=== PATIENT | male | born 1995 | race Caucasian/White ===

== ENCOUNTER 2017-12-25 10:34 | Day surgery (SDC) | payer BC, SELFPAY ==
[2017-12-25] MEDS ORDERED: ONDANSETRON 4 MG/2 ML VIAL ONE ×2 (10:49→11:52)
[2017-12-25] MEDS ORDERED: TETANUS & DIPHTHERIA TOX,ADULT 0.5 ML VIAL ONE (10:49)
[2017-12-25] MEDS ORDERED: CEFAZOLIN/SWI 1gm 1 GM/10 ML SYR ONE (10:49)
[2017-12-25] MEDS ORDERED: FENTANYL CITR 100 MCG/2 ML ONE ×3 (10:49→12:07)
--- NOTE | 2017-12-25 11:16 | RAD REPORT ---
EXAM DESCRIPTION: RAD - Hand Left 3 View - 12/25/2017 10:56 am CLINICAL HISTORY: Second digit amputation. COMPARISON: None. FINDINGS: Soft tissue amputation affecting the distal second digit. The very distal tuft of the seco nd digit is also amputated. No radiopaque foreign body.
--- NOTE | 2017-12-25 11:24 | ER ---
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 Transition of care: patient was not received from another setting of care. Onset of symptoms was December 25, 2017. Initial Sepsis Screen: Does the patient meet any 2 criteria? No. Patient's initial sepsis screen is negative. Does the patient have a suspected source of infection? No. Patient's initial sepsis screen is negative. Care prior to arrival: None. 10:37 Method Of Arrival: EMS: [facility] hb 10:37 Acuity: LAVELL 2 hb Historical: - Allergies: 10:40 No Known Allergies; hb - Home Meds: 10:40 None [Active]; hb - PMHx: 10:40 Bipolar disorder; Schizophrenia; hb - PSHx: 10:40 None; hb - Immunization history:: Adult Immunizations up to date. - Social history:: Smoking status: Patient/guardian denies using tobacco, Patient uses street drugs, marijuana. Screenin:45 Abuse screen: Denies threats or abuse. Denies injuries from another. hb 10:45 Nutritional screening: No deficits noted. Tuberculosis screening: No symptoms or risk hb factors identified. Fall Risk None identified. Assessment: 10:45 General: Appears in no apparent distress. uncomfortable, Behavior is cooperative, hb anxious, crying. Pain: Pain currently is 10 out of 10 on a pain scale. Neuro: Level of Consciousness is awake, alert, obeys commands, Oriented to person, place, time, situation. Cardiovascular: Heart tones S1 S2 present Capillary refill < 3 seconds Patient's skin is warm and dry. Respiratory: Airway is patent Trachea midline Respiratory effort is even, unlabored, Respiratory pattern is regular, symmetrical, Breath sounds are clear bilaterally. GI: No signs and/or symptoms were reported involving the gastrointestinal system. : No signs and/or symptoms were reported regarding the genitourinary system. EENT: No signs and/or symptoms were reported regarding the EENT system. Derm: Skin is intact, is healthy with good turgor. Musculoskeletal: Amputation of palmar aspect of distal phalanx of left index finger and left index fingernail. 10:47 Reassessment: Finger tip placed in moist gauze and ice per protocol. hb 11:30 Reassessment: Dr. Mohan at bedside. Surgical consent signed. hb 11:40 Reassessment: Patient appears in no apparent distress at this time. Patient and/or hb family updated on plan of care and expected duration. Pain level reassessed. Patient is alert, oriented x 3, equal unlabored respirations, skin warm/dry/pink. Vital Signs: 10:39 BP 132 / 91; Pulse 88; Resp 17; Temp 98.1; Pulse Ox 100% on R/A; Pain 10/10; hb 11:30 BP 128 / 88; Pulse 84; Resp 16; Pulse Ox 100% on R/A; Pain 8/10; hb ED Course: 10:36 Patient arrived in ED. jr8 10:36 Robert Huang PA is PHCP. jr8 10:36 Liborio Albert MD is Attending Physician. jr8 10:37 Ira Muhammad, [employer] is Primary Nurse. hb 10:39 Triage completed. hb 10:40 Arm band placed on right wrist. hb 10:45 Patient has correct armband on for positive identification. Placed in gown. Bed in low hb position. Call light in reach. Side rails up X 1. 10:45 Inserted saline lock: 20 gauge in right antecubital area, using aseptic technique. hb Blood collected. 10:55 XRAY Hand LEFT 3 View In Process Unspecified. EDMS 11:22 Fausto Mohan MD is Hospitalizing Provider. jr8 12:00 No provider procedures requiring assistance completed. hb 12:00 Patient admitted, IV remains in place. hb Administered Medications: 11:02 Drug: Tetanus-Diphtheria Toxoid Adult 0.5 ml {Clinical Documentation Manager: [employer]. Exp: hb 03/12/2020. Lot #: [id number]. } Route: IM; Site: left deltoid; 11:30 Follow up: Response: No adverse reaction hb 11:02 Drug: Ancef 1 grams Route: IVPB; Site: right antecubital; hb 11:33 Follow up: Response: No adverse reaction; IV Status: Completed infusion hb 11:02 Drug: fentaNYL (PF) 75 mcg Route: IVP; Site: right antecubital; hb 11:33 Follow up: Response: No adverse reaction hb 11:02 Drug: Zofran 4 mg Route: IVP; Site: right antecubital; hb 11:33 Follow up: Response: No adverse reaction hb Outcome: 11:23 Decision to Hospitalize by Provider. jr8 12:00 Admitted to OR accompanied by nurse, family with patient, via stretcher, with chart. hb 12:00 Condition: stable 12:00 Instructed on the need for admit, Demonstrated understanding of instructions. 12:01 Patient left the ED. hb Signatures: Dispatcher [employer] EDMS Robert Huang PA PA jr8 Ira Muhammad, RN RN hb
--- NOTE | 2017-12-25 11:24 | EDPHYS ---
Physician Documentation [facility] Name: Scout Monteiro II Age: 22 yrs Sex: Male : 1995 Arrival Date: 12/25/2017 Time: 10:36 Bed 8 Private MD: ED Physician Liborio Albert HPI: 12/25 11:08 This 22 yrs old Male presents to ER via EMS with complaints of Finger Injury. jr8 11:08 Onset: The symptoms/episode began/occurred acutely, today. The patient has not jr8 experienced similar symptoms in the past. The patient has not recently seen a physician. 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 Historical: - Allergies: 10:40 No Known Allergies; hb - Home Meds: 10:40 None [Active]; hb - PMHx: 10:40 Bipolar disorder; Schizophrenia; hb - PSHx: 10:40 None; hb - Immunization history:: Adult Immunizations up to date. - Social history:: Smoking status: Patient/guardian denies using tobacco, Patient uses street drugs, marijuana. ROS: 11:08 Eyes: Negative for injury, pain, redness, and discharge, ENT: Negative for injury, jr8 pain, and discharge, Neck: Negative for injury, pain, and swelling, Cardiovascular: Negative for chest pain, palpitations, and edema, Respiratory: Negative for shortness of breath, cough, wheezing, and pleuritic chest pain, Abdomen/GI: Negative for abdominal pain, nausea, vomiting, diarrhea, and constipation, Back: Negative for injury and pain, Skin: Negative for injury, rash, and discoloration, Neuro: Negative for headache, weakness, numbness, tingling, and seizure. 11:08 MS/extremity: Positive for laceration, pain, tenderness, of the left hand. Exam: 11:23 Cardiovascular: Regular rate and rhythm with a normal S1 and S2. No gallops, murmurs, jr8 or rubs. Normal PMI, no JVD. No pulse deficits. Respiratory: Lungs have equal breath sounds bilaterally, clear to auscultation and percussion. No rales, rhonchi or wheezes noted. No increased work of breathing, no retractions or nasal flaring. Skin: Warm, dry with normal turgor. Normal color with no rashes, no lesions, and no evidence of cellulitis. Neuro: Awake and alert, GCS 15, oriented to person, place, time, and situation. Cranial nerves II-XII grossly intact. Motor strength 5/5 in all extremities. Sensory grossly intact. Cerebellar exam normal. Normal gait. 11:23 Musculoskeletal/extremity: Extremities: grossly normal except: noted in the left hand: Patient has complete avulsion of skin to distal digit of left index finger just past nail bed. Part of the bone is missing and exposed. Patient without bleeding. The rest of digit is intact and with full ROM , ROM: intact in all extremities, Circulation is intact in all extremities. Sensation intact. Vital Signs: 10:39 BP 132 / 91; Pulse 88; Resp 17; Temp 98.1; Pulse Ox 100% on R/A; Pain 10/10; hb 11:30 BP 128 / 88; Pulse 84; Resp 16; Pulse Ox 100% on R/A; Pain 8/10; hb MDM: 10:36 Patient medically screened. jr8 11:21 Data reviewed: vital signs, nurses notes, lab test result(s), radiologic studies, plain jr8 films, and as a result, I will admit patient. Data interpreted: Pulse oximetry: on room air is 100 %. Interpretation: normal. Counseling: I had a detailed discussion with the patient and/or guardian regarding: the historical points, exam findings, and any diagnostic results supporting the discharge/admit diagnosis, lab results, radiology results, the need for further work-up and treatment in the hospital. ED course: Dr. Mohan was contacted and will take patient to surgery now . 12/25 10:38 Order name: CBC with Diff; Complete Time: 11:46 jr8 12/25 10:38 Order name: Basic Metabolic Panel; Complete Time: 11:46 jr8 12/25 10:40 Order name: XRAY Hand LEFT 3 View; Complete Time: 11:31 jr8 12/25 10:38 Order name: IV; Complete Time: 11:03 jr8 Administered Medications: 11:02 Drug: Tetanus-Diphtheria Toxoid Adult 0.5 ml {It Security Engineer: [employer]. Exp: hb 03/12/2020. Lot #: [id number]. } Route: IM; Site: left deltoid; 11:30 Follow up: Response: No adverse reaction hb 11:02 Drug: Ancef 1 grams Route: IVPB; Site: right antecubital; hb 11:33 Follow up: Response: No adverse reaction; IV Status: Completed infusion hb 11:02 Drug: fentaNYL (PF) 75 mcg Route: IVP; Site: right antecubital; hb 11:33 Follow up: Response: No adverse reaction hb 11:02 Drug: Zofran 4 mg Route: IVP; Site: right antecubital; hb 11:33 Follow up: Response: No adverse reaction hb Disposition: 16:23 Co-signature as Attending Physician, Liborio Albert MD. rn Disposition: 18 11:23 Hospitalization ordered by Fausto Mohan for Observation. Preliminary diagnosis is Amputation of digit . - Bed requested for Operating Room. - Status is Observation. hb - Condition is Stable. - Problem is new. - Symptoms are unchanged. UTI on Admission? No Signatures: Dispatcher [employer] EDMS Liborio Albert MD MD rn Roszak, Josh, PA PA jr8 Ira Muhammad RN RN hb Corrections: (The following items were deleted from the chart) 12:01 11:23 Hospitalization Ordered by Fausto Mohan MD for Observation. Preliminary hb diagnosis is Amputation of digit . Bed requested for Operating Room. Status is Observation. Condition is Stable. Problem is new. Symptoms are unchanged. UTI on Admission? No. jr8
[2017-12-25 11:31] LABS: Absolute Lymphocytes (CBC) 3.3 K/uL (0.7-4.9); Absolute Monocytes 0.7 K/uL (0.1-1.3); Absolute Neutrophil 4.6 K/uL (1.8-8.0); Basophils % 0.8 % (0-1.3); Lymphocytes % 37.5 % (15.3-44.8); MCV 87.8 fL (80-100); MPV 9.2 fL (7.6-11.3); Monocytes % 8.4 % (3.3-12.3)
[2017-12-25 11:36] LABS: Bicarbonate 26 mEq/L (21-31); Glucose Level 107 mg/dL (65-120); Potassium 3.8 mEq/L (3.6-5.0); Sodium Level 138 mEq/L (135-145)
[2017-12-25 11:37] LABS: BUN Blood Urea Nitrogen 12 mg/dL (6-20)
[2017-12-25] MEDS ORDERED: PROPOFOL 200 MG/20 ML VIAL IV ONE (11:38)
[2017-12-25] MEDS ORDERED: MIDAZOLAM HCL 2 MG/2 ML INJ ONE (11:39)
[2017-12-25] MEDS ORDERED: LIDOCAINE 2% MPF 5 ML VIAL ONE (11:52)
[2017-12-25] MEDS ORDERED: Ringers Lactate 1,000 ML IV ONE (11:55)
[2017-12-25] MEDS ORDERED: KETOROLAC 30 MG/ML INJ ONE (12:24)
[2017-12-25] MEDS ORDERED: MEPERIDINE HCL 25 MG/0.5 ML ONE (13:08)
[2017-12-25] MEDS ORDERED: CODEINE 30MG/APAP 300MG TAB ONE (13:52)
--- NOTE | 2017-12-26 00:03 | OP ---
Surgeon: Fausto Mohan MD Internal Auditor: Flako. Preoperative Diagnosis: Amputated tip of the left index finger. Postoperative Diagnosis: Amputated tip of the left index finger. Procedure Performed: Debridement of skin and subcutaneous tissue, bone, flap closure, nail bed repai r. Anesthesia: General. Procedure In Detail: After satisfactory induction of general anesthesia, left hand prepped with Beta dine scrub, Betadine paint, dry sterile drapes applied in usual manner. Arm was elevated, exsanguina lida with Esmarch, tourniquet was inflated to 250 mmHg. Hand placed on the [place] table. A perioste al elevator was used to remove the portion of the nail plate remaining. Then the patient's laceratio n was debrided to create a straight line across the nail bed. Then the bone was debrided with a bone cutter, and then filed with a file. Wound was jet lavaged, irrigated with 500 cc of dilute Betadine solution. A V-Y flap was outlined from the ulnar aspect of the index finger, advanced radially, and then sewn, closed with 4-0 Prolene simple sutures. Nail bed was repaired with 6-0 PDS. Tourniquet r eleased. The piece of silastic was used to replace the nail plate and dressed with Xeroform, 2-inch Rupa. The patient tolerated the procedure well and returned to recovery. NESS/MAKAYLA Voice ID: [id number] Report ID: [id number]
== END 2017-12-25 14:15 | disposition home or self-care (01) ==
LOC: ER 10:34 → OR 11:23
PROVIDERS: ATTEND Specialist
PROC: 0X6P0Z3 Detachment at Left Index Finger, Low, Open Approach (ICD-10-PCS; principal; 2017-12-25 11:15)
DX: S68.121A Partial traumatic metacarpophalangeal amputation of left index finger, initial encounter (principal)
CPT/HCPCS: 36415; 80048; 85025; 88304; 88305; 88311; 90714; 96365; 96375; 99285; J0690; J2175; J2250; J2405; J3010

== ENCOUNTER 2018-02-11 10:15 | Emergency (ER) | payer SELFPAY ==
[2018-02-11 11:02] LABS: Absolute Lymphocytes (CBC) 2.8 K/uL (0.7-4.9); Absolute Neutrophil 9.7 K/uL (1.8-8.0); Basophils % 0.5 % (0-1.3); Hematocrit 45.6 % (39.6-49.0); Lymphocytes % 20.7 % (15.3-44.8); MCH 29.1 pg (27.0-35.0); MCV 87.2 fL (80-100); MPV 8.6 fL (7.6-11.3); Monocytes % 7.1 % (3.3-12.3); RBC Red Blood Cell Count 5.23 M/uL (4.33-5.43)
[2018-02-11 11:17] LABS: BUN Blood Urea Nitrogen 6 mg/dL (7-18); Bicarbonate 29 mmol/L (21-32); Glucose Level 100 mg/dL (74-106); Sodium Level 140 mmol/L (136-145)
--- NOTE | 2018-02-11 12:15 | ER ---
Nurse's Notes [facility] Name: Scout Monteiro II Age: 22 yrs Sex: Male : 1995 Arrival Date: 02/11/2018 Time: 10:17 Bed 19 Private MD: Diagnosis: Pain in left finger(s) Presentation: 02/11 10:19 Presenting complaint: Patient states: "I believe I'm losing blood in my finger. It sv turns white and purple if I don't pump it." Redness noted and is new per pt. Transition of care: patient was not received from another setting of care. Onset of symptoms was February 11, 2018. Care prior to arrival: None. 10:19 Method Of Arrival: Ambulatory sv 10:19 Acuity: LAVELL 3 sv 12:48 Risk Assessment: Do you want to hurt yourself or someone else? Patient reports no aj1 desire to harm self or others. Initial Sepsis Screen: Does the patient meet any 2 criteria? No. Patient's initial sepsis screen is negative. Does the patient have a suspected source of infection? No. Patient's initial sepsis screen is negative. Historical: - Allergies: 10:21 No Known Allergies; sv - Home Meds: 10:21 None [Active]; sv - PMHx: 10:18 Bipolar disorder; Schizophrenia; sv - PSHx: 10:18 None; sv 10:21 left hand; sv - Immunization history:: Adult Immunizations up to date. - Social history:: Smoking status: Patient uses tobacco products, smokes one pack cigarettes per day. Patient uses alcohol, street drugs, Ecstasy. - Ebola Screening: : No symptoms or risks identified at this time. Screenin:45 Abuse screen: Denies threats or abuse. Denies injuries from another. Nutritional aj1 screening: No deficits noted. Tuberculosis screening: No symptoms or risk factors identified. 12:47 Fall Risk None identified. aj1 Assessment: 10:45 General: Appears in no apparent distress. uncomfortable, Behavior is calm, cooperative, aj1 appropriate for age, Patient states "I probably have a lot of alcohol in my system right now. I had quite a few drinks both last night and this morning". Pain: Complains of pain in dorsal aspect of distal phalanx of left index finger and palmar aspect of distal phalanx of left index finger Pain does not radiate. Pain currently is 8 out of 10 on a pain scale. Quality of pain is described as throbbing. Neuro: Level of Consciousness is awake, alert, obeys commands, Oriented to person, place, time, situation, Speech is normal. Cardiovascular: Patient's skin is warm and dry. Respiratory: Airway is patent Respiratory effort is even, unlabored, Respiratory pattern is regular, symmetrical. GI: No signs and/or symptoms were reported involving the gastrointestinal system. : No signs and/or symptoms were reported regarding the genitourinary system. EENT: No signs and/or symptoms were reported regarding the EENT system. Derm: redness and swelling present to the tip of the left index finger. Musculoskeletal: No signs and/or symptoms reported regarding the musculoskeletal system. Circulation, motion, and sensation intact. 11:28 Reassessment: Patient appears in no apparent distress at this time. No changes from aj1 previously documented assessment. Patient and/or family updated on plan of care and expected duration. Pain level reassessed. Patient is alert, oriented x 3, equal unlabored respirations, skin warm/dry/pink. 12:47 Reassessment: Patient appears in no apparent distress at this time. No changes from aj1 previously documented assessment. Patient and/or family updated on plan of care and expected duration. Pain level reassessed. Patient is alert, oriented x 3, equal unlabored respirations, skin warm/dry/pink. Vital Signs: 10:21 BP 121 / 83; Pulse 78; Resp 16; Temp 98.3; Pulse Ox 98% ; Weight 61.23 kg; Height 5 ft. sv 9 in. (175.26 cm); Pain 3/10; 12:47 BP 116 / 75; Pulse 82; Resp 18; Pulse Ox 99% ; aj1 10:21 Body Mass Index 19.93 (61.23 kg, 175.26 cm) sv ED Course: 10:17 Patient arrived in ED. sv 10:20 Triage completed. sv 10:21 Arm band placed on left wrist. sv 10:24 Paul Gandhi PA is PHCP. jmm 10:24 Liborio Albert MD is Attending Physician. jmm 10:29 Rama Agudelo RN is Primary Nurse. aj1 10:45 Patient has correct armband on for positive identification. Bed in low position. Call aj1 light in reach. Side rails up X 1. 10:45 No provider procedures requiring assistance completed. Initial lab(s) drawn, by nv, ajAjit sent to lab. Inserted saline lock: 18 gauge in right antecubital area, using aseptic technique. Blood collected. 11:14 X-ray completed. Portable x-ray completed in exam room. Patient tolerated procedure jw2 well. 11:18 Hand Left 3 View XRAY In Process Unspecified. EDMS 12:14 Fausto Mohan MD is Referral Physician. [facility] 12:47 IV discontinued, intact, bleeding controlled, No redness/swelling at site. Pressure aj1 dressing applied. Administered Medications: No medications were administered Outcome: 12:14 Discharge ordered by . [facility] 12:47 Discharged to home ambulatory. aj 12:47 Condition: good 12:47 Discharge instructions given to patient, Instructed on discharge instructions, follow up and referral plans. Demonstrated understanding of instructions, follow-up care. 12:48 Patient left the ED. aj Signatures: Dispatcher [employer] Rama Zavaleta RN RN aj1 Caitlyn Pollack RN RN Paul Gandhi PA PA Zaina Wilson jw2 Corrections: (The following items were deleted from the chart) 10:23 10:21 61.23 kg; Height 5 ft. 9 in.; BMI: 19.9; Pain 3/10; sv sv
--- NOTE | 2018-02-11 12:15 | EDPHYS ---
Physician Documentation [facility] Name: Scout Monteiro II Age: 22 yrs Sex: Male : 1995 Arrival Date: 02/11/2018 Time: 10:17 Bed 19 Private MD: ED Physician Liborio Albert HPI: 02/11 10:42 This 22 yrs old Male presents to ER via Ambulatory with complaints of Finger jmm infection. 10:42 The patient or guardian reports swelling. Onset: The symptoms/episode began/occurred jmm gradually, 3 week(s) ago. Associated signs and symptoms: Pertinent negatives: fever. This is a 22 year old male with a hx of schizophrenia that presents to the ED with left index distal finger swelling beginning approx 3 weeks ago after taking out his stitches. The patient denies fever. The patient is s/p distal finger amputation Dec 25 2017. Patient is concerned he may have cut off blood flow due to taking ectasy. . Historical: - Allergies: 10:21 No Known Allergies; sv - Home Meds: 10:21 None [Active]; sv - PMHx: 10:18 Bipolar disorder; Schizophrenia; sv - PSHx: 10:18 None; sv 10:21 left hand; sv - Immunization history:: Adult Immunizations up to date. - Social history:: Smoking status: Patient uses tobacco products, smokes one pack cigarettes per day. Patient uses alcohol, street drugs, Ecstasy. - Ebola Screening: : No symptoms or risks identified at this time. ROS: 10:42 Constitutional: Negative for fever, chills, and weight loss. jmm 10:42 MS/extremity: Positive for erythema. 10:42 Skin: Positive for erythema. 10:42 All other systems are negative. Exam: 10:42 Head/Face: atraumatic. Eyes: EOMI, no conjunctival erythema appreciated jmm Cardiovascular: Regular rate and rhythm. No edema appreciated Respiratory: Normal respirations, no respiratory distress appreciated Abdomen/GI: Non distended, soft Back: Normal ROM 10:42 Constitutional: The patient appears in no acute distress, alert, awake. 10:42 Musculoskeletal/extremity: FROM appreciated to the left 2nd distal phalanx, tender to palpation, < 2 sec distal cap refill. NVI. 10:42 Skin: erythema noted to the left 2nd fistal phalanx, . 10:42 Neuro: Orientation: is normal, Mentation: is normal, Memory: is normal, Gait: is steady. Vital Signs: 10:21 BP 121 / 83; Pulse 78; Resp 16; Temp 98.3; Pulse Ox 98% ; Weight 61.23 kg; Height 5 ft. sv 9 in. (175.26 cm); Pain 3/10; 12:47 BP 116 / 75; Pulse 82; Resp 18; Pulse Ox 99% ; aj1 10:21 Body Mass Index 19.93 (61.23 kg, 175.26 cm) sv MDM: 10:[address] [facility] 11:57 Data reviewed: vital signs, nurses notes, lab test result(s), radiologic studies, plain [facility] films. Counseling: I had a detailed discussion with the patient and/or guardian regarding: the historical points, exam findings, and any diagnostic results supporting the discharge/admit diagnosis, the need for outpatient follow up, to return to the emergency department if symptoms worsen or persist or if there are any questions or concerns that arise at home. ED course: Dr. Albert evaluated the patient. ED course: Patient is encouraged to follow up with hand surgery for reevaluation of his graft. Patient advised to return to the ED if he develops fever, or increased pain, or any other concerning symptoms. . 02/11 10:37 Order name: CBC with Diff; Complete Time: 11:24 [facility] 02/11 10:37 Order name: BMP; Complete Time: 11:24 [facility] 02/11 10:37 Order name: Saline Lock; Complete Time: 10:49 [facility] 02/11 10:37 Order name: Hand Left 3 View XRAY; Complete Time: 12:18 [facility] Administered Medications: No medications were administered Disposition: 17:12 Co-signature as Attending Physician, Liborio Albert MD. rn Disposition: 02/11/18 12:14 Discharged to Home. Impression: Pain in left finger(s). - Condition is Stable. - Discharge Instructions: Traumatic Finger Amputation. - Medication Reconciliation Form, Thank You Letter, Antibiotic Education, Prescription Opioid Use form. - Follow up: Fausto Mohan MD; When: 2 - 3 days; Reason: Continuance of care. - Notes: Please follow up with Dr. Mohan in 2 to 3 days for reevaluation. Please return to the ED if you develop increased redness, swelling, fever, or increased pain to your finger. Signatures: Dispatcher [employer] EDMS Rama Agudelo RN RN aj1 Caitlyn Pollack RN RN sv Mickail, Joel, PA PA jmm Nieto, Roman, MD MD pattern generator operator: (The following items were deleted from the chart) 12:48 12:14 02/11/2018 12:14 Discharged to Home. Impression: Pain in left finger(s). aj1 Condition is Stable. Forms are Medication Reconciliation Form, Thank You Letter, Antibiotic Education, Prescription Opioid Use. Follow up: Fausto Mohan; When: 2 - 3 days; Reason: Continuance of care. jovana
--- NOTE | 2018-02-11 12:16 | RAD REPORT ---
EXAM DESCRIPTION: RAD - Hand Left 3 View - 02/11/2018 11:18 am CLINICAL HISTORY: Traumatic injury left second digit, soft tissue wound, pain, bleeding COMPARISON: Left hand December 25 FINDINGS: Since the prior examination there has been surgical resection of the second digit distal p halanx tuft. Treatment or repair of the soft tissue injury performed as well. No acute or destructive bone process otherwise noted. No air or foreign body in the soft tissues. Elsewhere in the hand no s uspicious bone, joint or soft tissue finding. IMPRESSION: Postsurgical treatment of the tuft and soft tissues distal left second digit noted. No suspicious bone finding and no air or foreign body in the soft tissues.
== END 2018-02-11 12:48 | disposition home or self-care (01) ==
LOC: ER 10:15
DX: M79.645 Pain in left finger(s) (principal); F17.210 Nicotine dependence, cigarettes, uncomplicated; F20.9 Schizophrenia, unspecified
CPT/HCPCS: 36415; 80048; 85025; 99283

== ENCOUNTER 2019-10-26 10:48 | Emergency (ER) | payer SELFPAY ==
--- OUTSIDE RECORDS SUMMARY | 2019-10-26 10:50 | XMS REPORT ---
:1995 Author Organization [facility] Address [address] [place] [address] Dr. Ken [address] [place] [id number] Care Team Providers Name Role Phone Unavailable Unavailable Unavailable Problems This patient has no known problems. Allergies, Adverse Reactions, Alerts This patient has no known allergies or adverse reactions. Medications This patient has no known medications.
--- NOTE | 2019-10-26 12:32 | ER ---
Nurse's Notes [facility] Name: Scout Monteiro II Age: 24 yrs Sex: Male : 1995 Arrival Date: 10/26/2019 Time: 10:49 Bed 10 Private MD: Jagdeep Jiang Diagnosis: Acute upper respiratory infection, unspecified Presentation: 10/25 11:36 Chief complaint: Patient states: intermittent fever x 4 days with cough and runny nose. ss Coronavirus screen: The patient has NOT traveled to a country currently being monitored by the [facility] within the last 14 days. Proceed with normal triage procedures. Ebola Screen: Patient denies exposure to infectious person. Patient denies travel to an Ebola-affected area in the 21 days before illness onset. Initial Sepsis Screen: Does the patient meet any 2 criteria? No. Patient's initial sepsis screen is negative. Does the patient have a suspected source of infection? No. Patient's initial sepsis screen is negative. Risk Assessment: Do you want to hurt yourself or someone else? Patient reports no desire to harm self or others. 11:36 Method Of Arrival: Ambulatory ss 11:36 Acuity: LAVELL 4 ss 12:46 Onset of symptoms was October 26, 2019. ca1 Historical: - Allergies: 11:39 No Known Allergies; ss - Home Meds: 11:39 None [Active]; ss - PMHx: 11:39 Bipolar disorder; Schizophrenia; ss - PSHx: 11:39 left hand; ss - Immunization history:: Adult Immunizations up to date. - Social history:: Smoking status: Patient denies any tobacco usage or history of. Screenin:40 Abuse screen: Denies threats or abuse. Denies injuries from another. Nutritional ss screening: No deficits noted. Tuberculosis screening: Never had TB. Fall Risk None identified. Assessment: 11:40 General: Appears in no apparent distress. comfortable, Behavior is cooperative, ss anxious, Reports fever for > 3 days, feeling ill for > 3 days. Pain: Denies pain. Neuro: Level of Consciousness is awake, alert, obeys commands. Neuro: Denies weakness dizziness, numbness headache. Cardiovascular: Capillary refill < 3 seconds is brisk in bilateral fingers. Respiratory: Respiratory effort is even, unlabored. GI: Patient currently denies diarrhea, vomiting. EENT: Oral mucosa is moist. Throat is clear. Derm: Skin is intact, is healthy with good turgor, Skin is dry, Skin is pink, warm \T\ dry. normal. Musculoskeletal: Range of motion: intact in all extremities, Swelling absent. 12:46 Reassessment: Patient appears in no apparent distress at this time. Patient is alert, ca1 oriented x 3, equal unlabored respirations, skin warm/dry/pink. Vital Signs: 11:36 BP 132 / 94; Pulse 90; Resp 16; Temp 98.2(TE); Pulse Ox 100% on R/A; Weight 69.4 kg; ss Height 5 ft. 9 in. (175.26 cm); Pain 8/10; 12:46 BP 128 / 82; Pulse 92; Resp 16 S; Temp 97.9(TE); Pulse Ox 100% on R/A; ca1 11:36 Body Mass Index 22.59 (69.40 kg, 175.26 cm) ED Course: 10:49 Patient arrived in ED. rg4 10:50 Jadgeep Jiang MD is Private Physician. rg4 11:01 [facility]C [facility]. kb 11:01 Liborio Albert MD is Attending Physician. kb 11:39 Triage completed. ss 11:39 Arm band placed on right wrist. ss 11:40 Patient has correct armband on for positive identification. Bed in low position. Call ss light in reach. 12:46 No provider procedures requiring assistance completed. Patient did not have IV access ca1 during this emergency room visit. Administered Medications: No medications were administered Outcome: 12:31 Discharge ordered by . kb 12:33 Discharge ordered by . kb 12:46 Discharged to home ambulatory. ca1 12:46 Condition: stable 12:46 Discharge instructions given to patient, Instructed on discharge instructions, follow up and referral plans. Demonstrated understanding of instructions, follow-up care. 12:47 Patient left the ED. ca1 Signatures: Chloe Jeronimo FNP-C FNP-Ckb Smirch, Shelby, RN RN Karyn Miller rg4 Brigida Mitchell RN RN ca1
--- NOTE | 2019-10-26 12:32 | EDPHYS ---
Physician Documentation [facility] Name: Scout Monteiro II Age: 24 yrs Sex: Male : 1995 Arrival Date: 10/26/2019 Time: 10:49 Bed 10 Private MD: Jagdeep Jiang ED Physician Liborio Albert HPI: 10/25 12:28 This 24 yrs old Male presents to ER via Ambulatory with complaints of Cough, kb Runny Nose. 12:34 The patient or guardian reports cough, that is intermittent, described as moderate, flu kb symptoms, low-grade fever, myalgias. Onset: The symptoms/episode began/occurred 4 day(s) ago. Severity of symptoms: At their worst the symptoms were moderate, in the emergency department the symptoms are unchanged. Modifying factors: The symptoms are alleviated by nothing, the symptoms are aggravated by nothing. Associated signs and symptoms: Pertinent positives: fever, rhinorrhea. The patient has not experienced similar symptoms in the past. The patient has not recently seen a physician. Pt reports he started with intermittent fever and runny nose 4 days ago, now has a cough as well. "I have the symptoms of coronavirus." Pt denies travel or contact with anyone that has tested positive for COVID 19. Historical: - Allergies: 11:39 No Known Allergies; ss - Home Meds: 11:39 None [Active]; ss - PMHx: 11:39 Bipolar disorder; Schizophrenia; ss - PSHx: 11:39 left hand; ss - Immunization history:: Adult Immunizations up to date. - Social history:: Smoking status: Patient denies any tobacco usage or history of. ROS: 12:36 Neck: Negative for injury, pain, and swelling, Cardiovascular: Negative for chest pain, kb palpitations, and edema, Abdomen/GI: Negative for abdominal pain, nausea, vomiting, diarrhea, and constipation, Back: Negative for injury and pain, MS/Extremity: Negative for injury and deformity, Skin: Negative for injury, rash, and discoloration, Neuro: Negative for headache, weakness, numbness, tingling, and seizure. 12:36 Constitutional: Positive for body aches, fever. 12:36 ENT: Positive for rhinorrhea. 12:36 Respiratory: Positive for cough, Negative for dyspnea on exertion, hemoptysis, orthopnea, pleurisy, shortness of breath, sputum production, wheezing. Exam: 12:22 Constitutional: This is a well developed, well nourished patient who is awake, alert, kb and in no acute distress. Head/Face: Normocephalic, atraumatic. ENT: Nares patent. No nasal discharge, no septal abnormalities noted. Tympanic membranes are normal and external auditory canals are clear. Oropharynx with no redness, swelling, or masses, exudates, or evidence of obstruction, uvula midline. Mucous membranes moist. Neck: Trachea midline, no thyromegaly or masses palpated, and no cervical lymphadenopathy. Supple, full range of motion without nuchal rigidity, or vertebral point tenderness. No Meningismus. Chest/axilla: Normal chest wall appearance and motion. Nontender with no deformity. No lesions are appreciated. Cardiovascular: Regular rate and rhythm with a normal S1 and S2. No gallops, murmurs, or rubs. Normal PMI, no JVD. No pulse deficits. Respiratory: Lungs have equal breath sounds bilaterally, clear to auscultation and percussion. No rales, rhonchi or wheezes noted. No increased work of breathing, no retractions or nasal flaring. Abdomen/GI: Soft, non-tender, with normal bowel sounds. No distension or tympany. No guarding or rebound. No evidence of tenderness throughout. Skin: Warm, dry with normal turgor. Normal color with no rashes, no lesions, and no evidence of cellulitis. MS/ Extremity: Pulses equal, no cyanosis. Neurovascular intact. Full, normal range of motion. Neuro: Awake and alert, GCS 15, oriented to person, place, time, and situation. Cranial nerves II-XII grossly intact. Motor strength 5/5 in all extremities. Sensory grossly intact. Cerebellar exam normal. Normal gait. Vital Signs: 11:36 BP 132 / 94; Pulse 90; Resp 16; Temp 98.2(TE); Pulse Ox 100% on R/A; Weight 69.4 kg; ss Height 5 ft. 9 in. (175.26 cm); Pain 8/10; 12:46 BP 128 / 82; Pulse 92; Resp 16 S; Temp 97.9(TE); Pulse Ox 100% on R/A; ca1 11:36 Body Mass Index 22.59 (69.40 kg, 175.26 cm) MDM: 11:04 Patient medically screened. kb 12:12 Data reviewed: vital signs, nurses notes. Data interpreted: Pulse oximetry: on room air kb is 100 %. Interpretation: normal. Counseling: I had a detailed discussion with the patient and/or guardian regarding: the historical points, exam findings, and any diagnostic results supporting the discharge/admit diagnosis, lab results, the need for outpatient follow up, a family practitioner, to return to the emergency department if symptoms worsen or persist or if there are any questions or concerns that arise at home. 10/25 11:17 Order name: Flu; Complete Time: 12:09 kb Administered Medications: No medications were administered Disposition: 14:27 Co-signature as Attending Physician, Liborio Albert MD. rn Disposition: 10/26/19 12:33 Discharged to Home. Impression: Acute upper respiratory infection, unspecified. - Condition is Stable. - Discharge Instructions: Upper Respiratory Infection, Adult, [id number], Viral Respiratory Infection, [id number]. - Work release form, Medication Reconciliation Form, Thank You Letter, Antibiotic Education, Prescription Opioid Use form. - Follow up: Emergency Department; When: As needed; Reason: Worsening of condition. Follow up: Private Physician; When: 2 - 3 days; Reason: Recheck today's complaints, Continuance of care, Re-evaluation by your physician. Signatures: Dispatcher [employer] EDIL Chloe Jeronimo, WAFER SUBSTRATE TESTER-C WAFER SUBSTRATE TESTER-Ckb Liborio Albert MD MD rn Smirch, Shelby, RN RN ss Acob, Cheryl, RN RN [facility] Corrections: (The following items were deleted from the chart) 12:33 12:31 10/26/2019 12:31 Discharged to Home. Impression: Nausea and vomiting; Diarrhea, kb unspecified. Condition is Stable. Forms are Medication Reconciliation Form, Thank You Letter, Antibiotic Education, Prescription Opioid Use. Follow up: Emergency Department; When: As needed; Reason: Worsening of condition. Follow up: Private Physician; When: 2 - 3 days; Reason: Recheck today's complaints, Continuance of care, Re-evaluation by your physician. kb 12:34 12:22 Neck: Negative for injury, pain, and swelling, Cardiovascular: Negative for chest kb pain, palpitations, and edema, Respiratory: Negative for shortness of breath, cough, wheezing, and pleuritic chest pain, Back: Negative for injury and pain, MS/Extremity: Negative for injury and deformity, Skin: Negative for injury, rash, and discoloration, Neuro: Negative for headache, weakness, numbness, tingling, and seizure, 12:34 12:22 Constitutional: Positive for fever, kb 12:34 12:22 ENT: Positive for sore throat, kb 12:34 12:22 Abdomen/GI: Positive for nausea, vomiting, and diarrhea, kb 12:36 12:28 The patient has not experienced similar symptoms in the past, kb 12:36 12:28 The patient or guardian reports cough, that is intermittent, described as mild, kb flu symptoms, low-grade fever, :36 12:28 Onset: The symptoms/episode began/occurred yesterday, kb :36 12:28 Severity of symptoms: At their worst the symptoms were moderate, in the emergency kb department the symptoms are unchanged, :36 12:28 Modifying factors: The symptoms are alleviated by nothing, the symptoms are kb aggravated by nothing, : 12: Associated signs and symptoms: Pertinent positives: diarrhea, fever, nausea, sore kb throat, vomiting, :36 12:28 The patient has not recently seen a physician, [facility] : 12: Pt reports sore throat, fever, n/v/d that started yesterday. States 3 people that kb work with him have tested positive for the flu this week.. 12:47 12:33 10/26/2019 12:33 Discharged to Home. Impression: Acute upper respiratory ca1 infection, unspecified. Condition is Stable. Prescriptions for Zofran 4 mg Oral Tablet - take 1 tablet by ORAL route every 6 hours As needed; 20 tablet. and Forms are Medication Reconciliation Form, Thank You Letter, Antibiotic Education, Prescription Opioid Use. Follow up: Emergency Department; When: As needed; Reason: Worsening of condition. Follow up: Private Physician; When: 2 - 3 days; Reason: Recheck today's complaints, Continuance of care, Re-evaluation by your physician. kb
[2019-10-26 12:54] VITALS: O2SAT 100
[2019-10-26 12:55] VITALS: BP 128/82; TEMP 97.9
== END 2019-10-26 12:47 | disposition home or self-care (01) ==
LOC: ER 10:48
DX: J06.9 Acute upper respiratory infection, unspecified (principal)
CPT/HCPCS: 87804; 99281

== ENCOUNTER 2022-12-06 11:03 | Emergency (ER) | payer SELFPAY ==
--- OUTSIDE RECORDS SUMMARY | 2022-12-06 11:18 | XMS REPORT | Continuity of Care Document ---
:1995 Author Organization [facility] t Address [address] [place] [address] Care Team Providers Name Role Phone Pcp, Patient Does Not Have A Primary Care Physician [id number] ISIS DAHL Attending Clinician Unavailable Doctor Unassigned, [place] Attending Clinician Unavailable ALE GELLER Attending Clinician Unavailable SHIRLEY CHRISTIANSON Attending Clinician Unavailable Dhruv Malcolm Attending Clinician Shirley Christianson MD Attending Clinician NATHAN MANZO Attending Clinician Unavailable Isis Dahl MD Attending Clinician Odalis Lazaro Attending Clinician ISIS DAHL Admitting Clinician Unavailable YAYO [place]O Admitting Clinician Unavailable Isis Dahl MD Admitting Clinician Payers Payer Name Policy Type Policy Number Effective Date Expiration Date Boni foreman [facility] [id number] [id number] LONG TERM 00:00:00 Problems Condition Condition Condition Status Onset Resolution Last Treating Co mments Source Name Details Category Date Date Treatment Clinician Date Right Right Disease Active Overview: Univer s hydrocele hydrocele 04-10 Formattin i ty of 00:00: g of this [place] 00 note Medical might be Branch different from the original. Added automatic ally from request for surgery [id number] No known No known Disease Unive rs active active ity of problems problems [facility] Suicide Suicide Disease Active Street ideation ideation Health Psychosis Psychosis Disease Active [facility] Allergies, Adverse Reactions, Alerts Allergy Allergy Status Severity Reaction(s) Onset Inactive Treating Comm ents Source Name Type Date Date Clinician NO KNOWN Drug Active Univers ALLERGIE Class ity of S [facility] Social History Social Habit Start Date Stop Date Quantity Comments Source Exposure to Not sure [facility] SARS-CoV-2 (event) [facility] Gender identity Fernando gray Sexual orientation [facility] History of tobacco Smokes tobacco [facility] use daily History of Social 2022-09-06 2022-09-06 [facility] function 00:00:00 00:00:00 Alcohol intake 2021-03-13 2021-03-13 Ex-drinker [facility] 00:00:00 00:00:00 (finding) Cigarettes smoked 2015-05-19 2015-05-19 Univers ity of current (pack per 00:00:00 00:00:00 [facility] ) - Reported Branch Cigarette 2015-05-19 2015-05-19 University of pack-years 00:00:00 00:00:00 [facility] Tobacco use and 2015-05-19 2015-05-19 Current user Univers ity of exposure 00:00:00 00:00:00 [facility] Sex Assigned At [birth year] Fernando gray 00:00:00 00:00:00 Smoking Status Start Date Stop Date Source Current every day smoker 2015-05-19 00:00:[address] [facility] Medications Ordered Filled Start Stop Current Ordering Indication Dosage Frequency Signature Comments Components Source Medication Medication Date Date Medication? Clinician (SIG) Name Name nicotine 2020-08 Yes 1{patch 1 Patch, Un tae (NICODERM) 08-21 } Topical, ity o f 21 mg/24 hr 02:30: Administer [place] patch 1 00 over 24 Medical Patch Hours, [place] Q24H, First dose on Fri06/20/21 at 2030, Until Discontinu ed, Routine nicotine 2020-08- No 1{patch 1 Patch, U nivers (NICODERM) 08-20 } Topical, ity of 7 mg/24 hr 21:45: 01:18 Administer [place] patch 1 00 :02 over 24 Medical Patch Hours, Branch Q24H, First dose on Fri06/20/21 at 1545, Until Discontinu ed, Routine QUEtiapine 2020-0 Yes Psychosis, 25mg Take 1 [facility] (SEROQUEL) 4-23 unspecified tablet by Health 25 mg 00:00: psychosis mouth at tablet 00 type bedtime nightly. dextroamphe 2020-0 Yes 20mg Take 20 mg Univers tamine-amph 9-04 by mouth ity of etamine 17:44: daily. [place] (ADDERALL) 50 Medical 20 mg Branch tablet dextroamphe 2020-0 Yes 20mg Take 20 mg Univers tamine-amph 9-04 by mouth ity of etamine 17:44: daily. [place] (ADDERALL) 50 Medical 20 mg Branch tablet dextroamphe 2020-0 Yes 20mg Take 20 mg Univers tamine-amph 9-04 by mouth ity of etamine 17:44: daily. [place] (ADDERALL) 50 Medical 20 mg Branch tablet dextroamphe 2020-0 Yes 20mg Take 20 mg Univers tamine-amph 9-04 by mouth ity of etamine 17:44: daily. [place] (ADDERALL) 50 Medical 20 mg Branch tablet lactated 2020-0 Yes 1000mL at 100 Unive rs ringers IV 9-04 mL/hr, ity of infusion 16:45: 1,000 mL, [place] 1[place]000 [place] 00 IV Medical Infusion, Branch CONTINUOUS , Starting Fri04/14/20 at 1145, Until Discontinu ed, Routine, PACU HYDROcodone 2020-0 2020- No 1{tbl} 1 tablet, Univers -acetaminop 04-14 Oral, ity of hen (NORCO 16:45: 16:38 ONCE, 1 Dany as 5) 5-325 mg 00 :00 dose, Fri Med ical tablet 1 04/14/20 at Branch tablet 1145, Routine, PACU HYDROmorpho 2020-0 Yes .2mg 0.2 mg, Uni vers ne 04-14 Slow IV ity of (DILAUDID) 16:34: Push, [place] injection 43 Q5MIN PRN, Medi mariam 0.2 mg 10 doses, Branch Starting Fri04/14/20 at 1134, Until Discontinu ed, Routine, Pain (scale 7-10), PACU
Us e approved by (Faculty): PACU USE -ANESTHESI A SERVICE-HY DROMORPHON E INJECTIONS FENTanyl PF 2020-0 Yes 25ug 25 mcg, Uni vers (SUBLIMAZE 04-14 Slow IV ity of (PF)) 16:34: Push, [place] injection 43 Q5MIN PRN, Medi mariam 25 mcg 4 doses, Branch Starting Fri04/14/20 at 1134, Until Discontinu ed, Routine, Pain (scale 4-6), PACU ondansetron 2020-0 Yes 4mg 4 mg, Slow Univers (ZOFRAN 04-14 IV Push, ity of (PF)) 16:34: PRN, 1 [place] injection 4 43 dose, Medical mg Starting Branch Fri04/14/20 at 1134, Until Discontinu ed, Routine, Nausea and Vomiting (N/V), PACU bupivacaine 2020-0 Yes PRN, Univer s (preserv 04-14 Starting ity of free) 0.5% 15:29: Fri04/14/20 [place] (SENSORCAIN 00 at 1029, Medi mariam E MPF) 0.5 Until Branch % (5 mg/mL) Discontinu injection ed, Routine, Intra-op lidocaine 2020-0 Yes PRN, Univers 1% (PF) 04-14 Starting ity of (XYLOCAINE) 15:28: Fri04/14/20 [place] injection 00 at 1028, Medica l Until Branch Discontinu ed, Routine, Intra-op sodium 2020-0 Yes PRN, Univers chloride 04-14 Starting ity of 0.9 % 15:19: Fri04/14/20 [place] irrigation 00 at 1019, Medic al solution Until Branch Discontinu ed, Intra-op dextroamphe 2020-0 Yes 20mg Take 20 mg Univers tamine-amph -04 by mouth ity of etamine 12:44: daily. [place] (ADDERALL) 50 Medical 20 mg Branch tablet dextroamphe 2020-0 Yes 20mg Take 20 mg Univers tamine-amph 9-04 by mouth ity of etamine 12:44: daily. [place] (ADDERALL) 50 Medical 20 mg Branch tablet dextroamphe 2017-08 Yes 20mg Take 20 mg Univers tamine-amph 2-05 by mouth ity of etamine 03:22: daily. [place] (ADDERALL) 40 Medical 20 mg Branch tablet dextroamphe 2017- Yes 20mg Take 20 mg Univers tamine-amph 2-05 by mouth ity of etamine 03:22: daily. [place] (ADDERALL) 40 Medical 20 mg Branch tablet dextroamphe 2017- Yes 20mg Take 20 mg Univers tamine-amph 2-05 by mouth ity of etamine 03:22: daily. [place] (ADDERALL) 40 Medical 20 mg Branch tablet dextroamphe 2017- Yes 20mg Take 20 mg Univers tamine-amph 2-05 by mouth ity of etamine 03:22: daily. [place] (ADDERALL) 40 Medical 20 mg Branch tablet dextroamphe 2017- Yes 20mg Take 20 mg Univers tamine-amph 2-05 by mouth ity of etamine 03:22: daily. [place] (ADDERALL) 40 Medical 20 mg Branch tablet dextroamphe 2017- Yes 20mg Take 20 mg Univers tamine-amph 2-05 by mouth ity of etamine 03:22: daily. [place] (ADDERALL) 40 Medical 20 mg Branch tablet dextroamphe 2017-08 Yes 20mg Take 20 mg Univers tamine-amph 2-05 by mouth ity of etamine 03:22: daily. [place] (ADDERALL) 40 Medical 20 mg Branch tablet docusate 2018-0 Yes 250mg Take 1 Univer s sodium 250 8-03 capsule by ity of mg capsule 00:00: mouth [place] 00 daily. Medical Branch polyethylen 2018-0 Yes 17g Take 17 g U nivers e glycol 8-03 by mouth ity of (MIRALAX) 00:00: daily. [place] 17 00 Medical gram/dose Branch powder dicyclomine 2018-0 Yes 10mg Take 1 Univ ers (BENTYL) 10 8-03 capsule by it y of mg capsule 00:00: mouth 4 [place] 00 (four) Medical times Branch daily. ondansetron 2018-0 Yes 4mg Take 1 Univ ers 4 mg 8-03 tablet by ity of disintegrat 00:00: mouth [place] ing tablet 00 every 4 Medica l (four) Branch hours as needed for Nausea and Vomiting (N/V). docusate 2018-0 Yes 250mg Take 1 Univer s sodium 250 8-03 capsule by ity of mg capsule 00:00: mouth [place] 00 daily. Medical Branch polyethylen 2018-0 Yes 17g Take 17 g U nivers e glycol 8-03 by mouth ity of (MIRALAX) 00:00: daily. Medical gram/dose Branch powder dicyclomine 2018-0 Yes 10mg Take 1 Univ ers (BENTYL) 10 8-03 capsule by it y of mg capsule 00:00: mouth 4 [place] 00 (four) Medical times Branch daily. ondansetron 2018-0 Yes 4mg Take 1 Univ ers 4 mg 8-03 tablet by ity of disintegrat 00:00: mouth [place] ing tablet 00 every 4 Medica l (four) Branch hours as needed for Nausea and Vomiting (N/V). docusate 2018-0 Yes 250mg Take 1 Univer s sodium 250 8-03 capsule by ity of mg capsule 00:00: mouth [place] 00 daily. Medical Branch polyethylen 2018-0 Yes 17g Take 17 g U nivers e glycol 8-03 by mouth ity of (MIRALAX) 00:00: daily. Medical gram/dose Branch powder dicyclomine 2018-0 Yes 10mg Take 1 Univ ers (BENTYL) 10 8-03 capsule by it y of mg capsule 00:00: mouth 4 [place] 00 (four) Medical times Branch daily. ondansetron 2018-0 Yes 4mg Take 1 Univ ers 4 mg 8-03 tablet by ity of disintegrat 00:00: mouth [place] ing tablet 00 every 4 Medica l (four) Branch hours as needed for Nausea and Vomiting (N/V). docusate 2018-0 Yes 250mg Take 1 Univer s sodium 250 8-03 capsule by ity of mg capsule 00:00: mouth [place] 00 daily. Medical Branch polyethylen 2018-0 Yes 17g Take 17 g U nivers e glycol 8-03 by mouth ity of (MIRALAX) 00:00: daily. Medical gram/dose Branch powder dicyclomine 2018-0 Yes 10mg Take 1 Univ ers (BENTYL) 10 8-03 capsule by it y of mg capsule 00:00: mouth 4 [place] 00 (four) Medical times Branch daily. docusate 2018-0 Yes 250mg Take 1 Univer s sodium 250 8-03 capsule by ity of mg capsule 00:00: mouth [place] 00 daily. Medical Branch ondansetron 2018-0 Yes 4mg Take 1 Univ ers 4 mg 8-03 tablet by ity of disintegrat 00:00: mouth [place] ing tablet 00 every 4 Medica l (four) Branch hours as needed for Nausea and Vomiting (N/V). polyethylen 2018-0 Yes 17g Take 17 g U nivers e glycol 8-03 by mouth ity of (MIRALAX) 00:00: daily. Medical gram/dose Branch powder dicyclomine 2018-0 Yes 10mg Take 1 Univ ers (BENTYL) 10 8-03 capsule by it y of mg capsule 00:00: mouth 4 [place] 00 (four) Medical times Branch daily. ondansetron 2018-0 Yes 4mg Take 1 Univ ers 4 mg 8-03 tablet by ity of disintegrat 00:00: mouth [place] ing tablet 00 every 4 Medica l (four) Branch hours as needed for Nausea and Vomiting (N/V). docusate 2018-0 Yes 250mg Take 1 Univer s sodium 250 8-03 capsule by ity of mg capsule 00:00: mouth [place] 00 daily. Medical Branch polyethylen 2018-0 Yes 17g Take 17 g U nivers e glycol 8-03 by mouth ity of (MIRALAX) 00:00: daily. Medical gram/dose Branch powder dicyclomine 2018-0 Yes 10mg Take 1 Univ ers (BENTYL) 10 8-03 capsule by it y of mg capsule 00:00: mouth 4 [place] 00 (four) Medical times Branch daily. ondansetron 2018-0 Yes 4mg Take 1 Univ ers 4 mg 8-03 tablet by ity of disintegrat 00:00: mouth [place] ing tablet 00 every 4 Medica l (four) Branch hours as needed for Nausea and Vomiting (N/V). docusate 2018-0 Yes 250mg Take 1 Univer s sodium 250 8-03 capsule by ity of mg capsule 00:00: mouth [place] 00 daily. Medical Branch polyethylen 2018-0 Yes 17g Take 17 g U nivers e glycol 8-03 by mouth ity of (MIRALAX) 00:00: daily. Medical gram/dose Branch powder dicyclomine 2018-0 Yes 10mg Take 1 Univ ers (BENTYL) 10 8-03 capsule by it y of mg capsule 00:00: mouth 4 [place] 00 (four) Medical times Branch daily. ondansetron 2018-0 Yes 4mg Take 1 Univ ers 4 mg 8-03 tablet by ity of disintegrat 00:00: mouth [place] ing tablet 00 every 4 Medica l (four) Branch hours as needed for Nausea and Vomiting (N/V). docusate 2018-0 Yes 250mg Take 1 Univer s sodium 250 8-03 capsule by ity of mg capsule 00:00: mouth [place] 00 daily. Medical Branch polyethylen 2018-0 Yes 17g Take 17 g U nivers e glycol 8-03 by mouth ity of (MIRALAX) 00:00: daily. [place] 17 00 Medical gram/dose Branch powder dicyclomine 2018-0 Yes 10mg Take 1 Univ ers (BENTYL) 10 8-03 capsule by it y of mg capsule 00:00: mouth 4 [place] 00 (four) Medical times Branch daily. ondansetron 2018-0 Yes 4mg Take 1 Univ ers 4 mg 8-03 tablet by ity of disintegrat 00:00: mouth [place] ing tablet 00 every 4 Medica l (four) Branch hours as needed for Nausea and Vomiting (N/V). docusate 2018-0 Yes 250mg Take 1 Univer s sodium 250 8-03 capsule by ity of mg capsule 00:00: mouth [place] 00 daily. Medical Branch polyethylen 2018-0 Yes 17g Take 17 g U nivers e glycol 8-03 by mouth ity of (MIRALAX) 00:00: daily. [place] 17 Medical gram/dose Branch powder dicyclomine 2018-0 Yes 10mg Take 1 Univ ers (BENTYL) 10 8-03 capsule by it y of mg capsule 00:00: mouth 4 [place] 00 (four) Medical times Branch daily. ondansetron 2018-0 Yes 4mg Take 1 Univ ers 4 mg 8-03 tablet by ity of disintegrat 00:00: mouth [place] ing tablet 00 every 4 Medica l (four) Branch hours as needed for Nausea and Vomiting (N/V). docusate 2018-0 Yes 250mg Take 1 Univer s sodium 250 8-03 capsule by ity of mg capsule 00:00: mouth [place] 00 daily. Medical Branch polyethylen 2018-0 Yes 17g Take 17 g U nivers e glycol 8-03 by mouth ity of (MIRALAX) 00:00: daily. Medical gram/dose Branch powder dicyclomine 2018-0 Yes 10mg Take 1 Univ ers (BENTYL) 10 8-03 capsule by it y of mg capsule 00:00: mouth 4 [place] 00 (four) Medical times Branch daily. ondansetron 2018-0 Yes 4mg Take 1 Univ ers 4 mg 8-03 tablet by ity of disintegrat 00:00: mouth [place] ing tablet 00 every 4 Medica l (four) Branch hours as needed for Nausea and Vomiting (N/V). docusate 2018-0 Yes 250mg Take 1 Univer s sodium 250 8-03 capsule by ity of mg capsule 00:00: mouth [place] 00 daily. Medical Branch polyethylen 2018-0 Yes 17g Take 17 g U nivers e glycol 8-03 by mouth ity of (MIRALAX) 00:00: daily. Medical gram/dose Branch powder dicyclomine 2018-0 Yes 10mg Take 1 Univ ers (BENTYL) 10 8-03 capsule by it y of mg capsule 00:00: mouth 4 [place] 00 (four) Medical times Branch daily. ondansetron 2018-0 Yes 4mg Take 1 Univ ers 4 mg 8-03 tablet by ity of disintegrat 00:00: mouth [place] ing tablet 00 every 4 Medica l (four) Branch hours as needed for Nausea and Vomiting (N/V). docusate 2018-0 Yes 250mg Take 1 Univer s sodium 250 8-03 capsule by ity of mg capsule 00:00: mouth [place] 00 daily. Medical Branch polyethylen 2018-0 Yes 17g Take 17 g U nivers e glycol 8-03 by mouth ity of (MIRALAX) 00:00: daily. Medical gram/dose Branch powder dicyclomine 2018-0 Yes 10mg Take 1 Univ ers (BENTYL) 10 8-03 capsule by it y of mg capsule 00:00: mouth 4 [place] 00 (four) Medical times Branch daily. ondansetron 2018-0 Yes 4mg Take 1 Univ ers 4 mg 8-03 tablet by ity of disintegrat 00:00: mouth [place] ing tablet 00 every 4 Medica l (four) Branch hours as needed for Nausea and Vomiting (N/V). docusate 2018-0 Yes 250mg Take 1 Univer s sodium 250 8-03 capsule by ity of mg capsule 00:00: mouth [place] 00 daily. Medical Branch polyethylen 2018-0 Yes 17g Take 17 g U nivers e glycol 8-03 by mouth ity of (MIRALAX) 00:00: daily. [place] 17 00 Medical gram/dose Branch powder dicyclomine 2018-0 Yes 10mg Take 1 Univ ers (BENTYL) 10 8-03 capsule by it y of mg capsule 00:00: mouth 4 [place] 00 (four) Medical times Branch daily. ondansetron Yes 4mg Take 1 Univ ers 4 mg 8-03 tablet by ity of disintegrat 00:00: mouth [place] ing tablet 00 every 4 Medica l (four) Branch hours as needed for Nausea and Vomiting (N/V). Vital Signs Vital Name Observation Time Observation Value Comments Source Systolic blood 2021-06-21 04:41:00 118 mm[Hg] Univer sity [facility] Diastolic blood 2021-06-21 04:41:00 75 [facility] 2021-06-21 04:41:00 77 [facility] Body temperature 2021-06-21 04:41:00 36.78 [facility] Respiratory rate 2021-06-21 04:41:00 16 /min [facility] Oxygen saturation in 2021-06-21 04:41:00 98 /min [facility] Arterial blood by [facility] Pulse oximetry Branch Body height 2021-06-20 00:32:00 180.3 cm [facility] Body weight 2021-06-20 00:32:00 83.915 [facility] BMI 2021-06-20 00:32:00 25.80 kg/m2 [facility] Systolic blood 2020-04-20 13:38:00 102 mm[Hg] Univer sity [facility] Diastolic blood 2020-04-20 13:38:00 67 mm[Hg] [facility] 2020-04-20 13:38:00 60 /min Universi ty of [facility] Body temperature 2020-04-20 13:38:00 36.22 [place] [facility] ersity [facility] Respiratory rate 2020-04-20 13:38:00 20 /min Univ ersity of [facility] Body weight 2020-04-20 13:38:00 64.[address] [facility] BMI 2020-04-20 13:38:00 20.95 kg/m2 Universi ty [facility] Branch Systolic blood 2020-04-14 16:58:00 114 mm[Hg] Univer sity of pressure [facility] Diastolic blood 2020-04-14 16:58:00 75 mm[Hg] Unive rsity of pressure [facility] Heart rate 2020-04-14 16:58:00 80 /min Universi ty of [facility] Oxygen saturation in 2020-04-14 16:58:00 100 /min University Arterial blood by [facility] Pulse oximetry Branch Body temperature 2020-04-14 16:28:00 36.72 [place] [facility] [address] [facility] Respiratory rate 2020-04-14 16:28:00 15 /min Univ ersity of [facility] Body height 2020-04-12 13:58:00 175.[address] [facility] Body weight 2020-04-12 13:58:00 66.679 kg Universi ty of [place] [facility] [place] BMI 2020-04-12 13:58:00 21.71 kg/m2 Universi ty of [facility] Branch Systolic blood 2020-04-07 20:29:00 129 mm[Hg] Univer sity of pressure [facility] Diastolic blood 2020-04-07 20:29:00 90 mm[Hg] Unive rsity of pressure [facility] Heart rate 2020-04-07 20:29:00 104 /min Universi ty of [facility] Body temperature 2020-04-07 20:29:00 36.83 [place] [facility] [address] of [facility] Respiratory rate 2020-04-07 20:29:00 20 /min Univ ersity of [facility] Body height 2020-04-07 20:29:00 167.6 [address] [facility] Body weight 2020-04-07 20:29:[address] [facility] BMI 2020-04-07 20:29:00 22.76 [facility]m2 [facility] Oxygen saturation in 2020-04-07 20:29:00 98 /min [facility] blood by [facility] Pulse oximetry Branch Procedures Procedure Date / Time Performing Clinician Source Performed EXTERNAL PROVIDER RECORDS 2021-06-27 06:01:00 Doctor Unassigned, [facility] [place] [facility] [place] COVID-19 (MOLECULAR 2021-06-20 04:34:00 Dhruv Rae [facility] TESTING [facility] NUCLEIC ACID AMPLIFICATION) LAB ONLY COVID 2021-06-20 04:34:00 Dhruv Rae [facility] CREATINE KINASE 2021-06-20 00:55:00 Dhruv Rae [facility] LIPASE 2021-06-20 00:55:00 Dhruv Rae [facility] COMP. METABOLIC PANEL 2021-06-20 00:55:00 Dhruv Rae [facility] ([id number]) [facility] SALICYLATE 2021-06-20 00:55:00 Dhruv Rae [facility] ETHANOL 2021-06-20 00:55:00 Dhruv Rae [facility] CBC WITH DIFF 2021-06-20 00:55:00 Dhruv Rae [facility] COVID-19 (ID NOW RAPID 2021-06-20 00:55:00 Dhruv Rae [facility]) Medical Branch LAB ONLY COVID 2021-06-20 00:55:00 Dhruv Rae [facility] URINALYSIS 2021-06-20 00:50:00 Dhruv Rae [facility] URINE DRUG (IMMUNOASSAY) 2021-06-20 00:50:00 Dhruv Rae [facility] DRUG Medical [facility] SCREEN W/O REFLEX DSU PRE-OP 2020-04-14 05:01:00 Doctor Unassigned, [facility] [place] [facility] [place] US SCROTUM AND CONTENTS 2020-04-11 00:41:00 Odalis [facility] ASSIGNMENT OF BENEFITS 2020-04-10 23:19:18 [facility] Branch DISCLOSURE AND CONSENT, 2020-04-08 05:01:00 [facility]ICAL [place] [facility] PROCEDURES REFERRAL- 2020-03-08 05:01:00 Doctor Unassigned, [facility] REQUEST/RESPONSE [place] [facility] Plan of Care Planned Activity Planned Date Details Comments Source Future Scheduled Test 2023-05-11 IMM Influenza Seasonal [facility] 00:00:00 (>/= 19 yrs) [code = IMM Influenza Seasonal (>/= 19 yrs)] Future Scheduled Test 2000 Imm Pneumococcal 0-64 [facility] 00:00:00 (1 - PCV) [code = Imm Pneumococcal 0-64 (1 - PCV)] Future Scheduled Test 1994 COVID-19 Vaccine (#1) [facility] 00:00:00 [code = COVID-19 Vaccine (#1)] Encounters Start End Encounter Admission Attending Care Care Encounter Source Date/Time Date/Time Type Type Clinicians Facility Department ID 2021-06-08 Emergency [facility] [id number] Univers 15:07:11 [facility] 2021-06-08 Outpatient R FILOMENA [facility] GILDA [id number] Univers 14:55:36 ISIS [facility] 2021-06-27 2021-06-27 Orders Doctor GONZALEZ [id number] Univers 00:00:00 00:00:00 Only Unassigned, RAFAEL [id number] [facility] [place] [facility] [id number] Dany as [id number] [address] 2021-06-21 2021-06-25 Inpatient [facility] 023 [id number] [place] 00:00:00 00:00:00 ALE [address] 2021-06-19 2021-06-21 Emergency X MING [facility] ERT [id number] Univers 18:28:00 00:45:00 SHIRLEY [facility] 2021-06-19 2021-06-21 Emergency Dhruv Rae [facility] [id number] Univers 18:28:00 00:45:00 Shirley Christianson NORY [id number] [facility]y [facility] [id number] [facility] [id number] [facility] 084 Branch 2020-11-30 2020-12-01 Emergency [facility] [id number] [place] 14:37:00 10:30:00 Nabeel [place] aneesh EVANS 2020-05-03 2020-05-03 Telephone [facility] [id number] Univers 00:00:00 00:00:00 Isis Urban [id number] i [place] [id number] [place] Profess[place] [phone] [facility] 204 [facility] 2020-04-20 2020-04-20 Office [facility] [id number] Univers 08:31:56 09:11:13 Visit Isis Urban [id number] i [place] [id number] [phone] [address] 2020-04-20 2020-04-20 Outpatient R [facility] [id number] Univers 08:30:00 08:30:[address] [facility] 2020-04-14 2020-04-14 Hospital [facility] [id number] Univers 08:28:00 12:30:00 Encounter Isis Urban [id number] ity of [place] [id number] [place] [id number] Med [facility] 071 Branch 2020-04-14 2020-04-14 Orders Doctor LISA [id number] Univers 00:00:00 00:00:00 Only Unassigned, RAFAEL [id number] ity of [place] [facility] [id number] Dany as [phone] [facility] 009 Branch 2020-04-07 2020-04-12 Office [facility] [id number] Univers 15:20:02 09:02:35 Visit Isis Nory [id number] i ty [place] [id number] [place] [facility] [phone] Or dical nal 204 Branch [facility] 2020-04-10 2020-04-10 Hospital [facility] [id number] [employer] 18:00:00 23:59:00 Encounter Odalis Cline Nory 350.1.13.10 ity of [place] [id number] [facility] [address] 2020-04-08 2020-04-08 Orders Doctor LISA [id number] [id number] [employer] 00:00:00 00:00:00 Only Unassigned, RAFAEL 350.1.13.10 ity of [place] [facility] 4.2.7.2.686 Dany as [id number] [facility] [address] [place] 2020-04-07 2020-04-07 [facility] [id number] [facility] 15:30:00 15:30:00 [facility] 2020-03-08 2020-03-08 Orders Doctor LISA [id number] [id number] Univers 00:00:00 00:00:00 Only Unassigned, RAFAEL 350.1.13.10 ity of [place] [facility] 4.2.7.2.686 Dany as [phone] [facility] [address] [place] Results Test Description Test Time Test Comments Results Result Comments Source ACETAMINOPHEN 2021-06-20 01:15:56 Test Item Value Reference Range Interpretation Comme nts ACETAMINOP (test code = 4748673446) <10.0 10.0-30.0 L JANETT (test code = JANETT) Toxic: Greater than 200 ug/mL @ 4 hour post ingestion or greater than 50 ug/mL @ 12 hour post ingestion Lab Interpretation (test code = Abnormal 87049-6) [facility] 01:15[facility]15 Test Item Value Reference Range Interpretation Comments SALICYLATE (test code <10 mg/L = 8650495162) JANETT (test code = JANETT) Therapeutic Range: ? Analgesic and Antipyretic Use ? 20-100 mg/L ? ? Anti-Inflammatory Use ? 100-250 mg/L Toxic Range: ? Greater than 300 mg/L [facility] 01:15:10 Test Item Value Reference Range Interpretation Comments ALCOHOL (test code = <10 mg/dL 9737391155) JANETT (test code = JANETT) <10 [id number] Toxic>100 Depression of WAISTBAND SETTER>400 Fatalities Reported [facility] METABOLIC PANEL ([id number])2021-06-20 01:13:38 Test Item Value Reference Range Interpretation Comments NA (test code = 137 mmol/L 135-145 9462313675) K (test code = 3.9 mmol/L 3.5-5.0 3093621663) CL (test code = 103 mmol/L 98-108 1283593730) CO2 TOTAL (test code 25 mmol/L 23-31 = 8254882219) AGAP (test code = 2-16 1201909319) BUN (test code = 11 mg/dL 7-23 3995479833) GLUCOSE (test code = 108 mg/dL 70-110 8107993371) CREATININE (test code 1.05 mg/dL 0.60-1.25 = 2157658607) TOTAL BILI (test code 0.3 mg/dL 0.1-1.1 = 2344585540) CALCIUM (test code = 9.2 mg/dL 8.6-10.6 0595004630) T PROTEIN (test code 7.0 g/dL 6.3-8.2 = 6121753505) ALBUMIN (test code = 4.3 g/dL 3.5-5.0 4012919278) ALK PHOS (test code = 68 U/L 34-122 6873918507) ALTv (test code = 15 U/L 5-50 1742-6) AST(SGOT) (test code 20 U/L 13-40 = 5877426115) eGFR (test code = mL/min/1.73m2 6421051196) JANETT (test code = JANETT) Association of Glomerular Filtration Rate (GFR) and Staging of Kidney Disease* + + +- +| GFR (mL/min/1.73 m2) ?| With Kidney Damage ?| ?Without Kidney Damage+ ------+ ----+ ------+| ?>90 ?| ?Stage one ?| ? Normal ?+ -+ + -+| ?60-89 ?| ?Stage two ?| ? Decreased GFR ? + + +- +| ?30-59 ?| ?Stage three ?| ? Stage three ? + + +- +| ?15-29 ?| ?Stage four ? | ? Stage four ?+ -+ + -+| ?<15 (or dialysis) ? ?| ?Stage five ? | ? Stage five ?+ -+ + -+ *Each stage assumes the associated GFR level has been in effect for at least three months. ?Stages 1 to 5, with or without kidney disease, indicate chronic kidney disease. Notes: Determination of stages one and two (with eGFR >59mL/min/1.73 m2) requires estimation of kidney damage for at least three months as defined by structural or functional abnormalities of the kidney, manifested by either:Pathological abnormalities or Markers of kidney damage (including abnormalities in the composition of the blood or urine or abnormalities in imaging tests). [facility]2021-11-10 01:13:37 Test Item Value Reference Range Interpretation Comments LIPASE (test code = 1057582262) 64 U/L 0-220 Lab Interpretation (test code = Normal 98384-4) [facility] [id number] 01:13:16 Test Item Value Reference Range Interpretation Comments CK (test code = 6332550074) 76 U/L 33-194 Lab Interpretation (test code = Normal 26750-6) [facility] WITH [id number] 01:01:56 Test Item Value Reference Range Interpretation Comments WBC (test code = See_Comment [Automated 9800-2) message] The sy stem which generated this result transmitted reference range : 4.20 - 10.70 10*3/?L. The reference range was not used to interpret this result as normal/abnormal . RBC (test code = See_Comment [Automated 265-8) message] The sy stem which generated this result transmitted reference range : 4.26 - 5.52 10*6/?L. The reference range was not used to interpret this result as normal/abnormal . HGB (test code = 13.7 g/dL 12.2-16.4 718-7) HCT (test code = 41.2 % 38.4-49.3 4544-3) MCV (test code = 88.2 fL 81.7-95.6 787-2) MCH (test code = 29.3 pg 26.1-32.7 785-6) MCHC (test code = 33.3 g/dL 31.2-35.0 786-4) RDW-SD (test code = 39.8 fL 38.5-51.6 55473-9) RDW-CV (test code = 12.3 % 12.1-15.4 788-0) PLT (test code = See_Comment [Automated 777-3) message] The sy stem which generated this result transmitted reference range : 150 - 328 10*3/ ?L. The reference r gary was not used to interpret this result as normal/abnormal . MPV (test code = 10.5 fL 9.8-13.0 98732-0) NRBC/100 WBC (test See_Comment [Automat ed code = 8080058513) message] The system which generated this result transmitted reference range : 0.0 - 10.0 /100 WBCs. The refer ence range was not u sed to interpret th is result as normal/abnormal . NRBC x10^3 (test code <0.01 See_Comment [Auto mated = 6911533620) message] The s ystem which generated this result transmitted reference range : 10*3/?L. The reference range was not used to interpret this result as normal/abnormal . GRAN MAT (NEUT) % 55.6 % (test code = 770-8) IMM GRAN % (test code 0.30 % = 3156643607) LYMPH % (test code = 34.9 % 736-9) MONO % (test code = 8.0 % 5905-5) EOS % (test code = 0.7 % 713-8) BASO % (test code = 0.5 % 706-2) GRAN MAT x10^3(ANC) 5.24 10*3/uL 1.99-6.95 (test code = 3448327215) IMM GRAN x10^3 (test 0.03 10*3/uL 0.00-0.06 code = 7699329300) LYMPH x10^3 (test code 3.30 10*3/uL 1.09-3.23 H = 731-0) MONO x10^3 (test code 0.76 10*3/uL 0.36-1.02 = 742-7) EOS x10^3 (test code = 0.07 10*3/uL 0.06-0.53 711-2) BASO x10^3 (test code 0.05 10*3/uL 0.01-0.09 = 704-7) Lab Interpretation Abnormal (test code = 20007-2) [facility]"
[2022-12-06] MEDS ORDERED: TDAP (DIPHTH,PERTUSS(ACELL),TET VAC) 0.5 ML VIAL IMVAC ONE (11:34)
--- NOTE | 2022-12-06 12:15 | RAD REPORT ---
EXAM DESCRIPTION: MEDINA WYMAN - 12/06/2022 11:43 am CLINICAL HISTORY: PAIN COMPARISON: Hand Left 3 View dated 02/11/2018; Hand Left 3 View dated 12/25/2017 TECHNIQUE: Left hand, 3 views. FINDINGS: Soft tissue irregularity and amputation at the level of the tuft of the second digit dista l phalanx, stable in appearance. No other acute osseous abnormality. . Mild adjacent swelling extendi ng along the second digit. Punctate radiodense foci along the soft tissues of the second digit and ba se of the third digit, suggestive of There is no dislocation or periosteal reaction noted. Joint alignment is maintained. IMPRESSION: Stable appearance of amputation at the level of the tuft of the second digit distal phal anx. Soft tissue swelling about the second digit.
[2022-12-06] MEDS ORDERED: BUPIVACAINE 0.5% PF 10 ML VIAL ONE (12:41)
[2022-12-06] MEDS ORDERED: LIDOCAINE 1% MPF 5 ML VIAL ONE (12:41)
--- NOTE | 2022-12-06 13:56 | EDPHYS ---
Physician Documentation [facility] Name: Scout Monteiro II Age: 27 yrs Sex: Male : 1995 Arrival Date: 12/06/2022 Time: 11:03 Bed 11 Private MD: ED Physician Sumanth Crain HPI: 12/06 15:17 This 27 yrs old Male presents to ER via Ambulatory with complaints of Finger Injury. kb 15:17 The patient or guardian reports injury, pain, nail removed. The complaints affect the kb dorsal aspect of distal phalanx of left index finger. Context: The problem was sustained at work, resulted from accidentally scraped finger with [place] bar causing nail to be removed . Onset: The symptoms/episode began/occurred just prior to arrival. Modifying factors: The symptoms are alleviated by nothing, the symptoms are aggravated by nothing. Associated signs and symptoms: The patient has no apparent associated signs or symptoms. Severity of symptoms: At their worst the symptoms were mild, in the emergency department the symptoms are unchanged. The patient has not experienced similar symptoms in the past. The patient has not recently seen a physician. Historical: - Home Meds: 11:20 Seroquel 25 mg Oral tablet daily [Active]; ld1 - PMHx: 11:20 Bipolar disorder; Schizophrenia; ld1 - PSHx: 11:20 None; ld1 - Immunization history:: Adult Immunizations up to date, Client reports receiving the 2nd dose of the Covid vaccine. - Social history:: Smoking status: Patient denies any tobacco usage or history of. Patient/guardian denies using alcohol. ROS: 15:19 Constitutional: Negative for fever, chills, and weight loss. kb 15:19 Skin: Positive for avulsion, of the dorsal aspect of distal phalanx of left index finger. 15:19 All other systems are negative. Exam: 15:19 Constitutional: This is a well developed, well nourished patient who is awake, alert, kb and in no acute distress. Head/Face: Normocephalic, atraumatic. ENT: Moist Mucous membranes Cardiovascular: Regular rate and rhythm with a normal S1 and S2. No gallops, murmurs, or rubs. No pulse deficits. Respiratory: Respirations even and unlabored. No increased work of breathing. Talking in full sentences MS/ Extremity: Pulses equal, no cyanosis. Neurovascular intact. Full, normal range of motion. Neuro: Awake and alert, GCS 15, oriented to person, place, time, and situation. Moves all extremities. Normal gait. 15:19 Skin: injury, avulsion(s), of the dorsal aspect of distal phalanx of left index finger. 15:19 Musculoskeletal/extremity: Nails: complete avulsion, of the left index fingernail. kb Vital Signs: 11:19 Resp 18; Pulse Ox 100% ; Weight 90.72 kg; Height 5 ft. 11 in. ; Pain 10/10; ld1 11:22 BP 130 / 97; Pulse 81; Temp 98.3(O); ld1 14:15 BP 128 / 89; Pulse 88; Resp 18; Pulse Ox 100% ; mb9 11:19 Body Mass Index 27.89 (90.72 kg, 180.34 cm) ld1 11:19 Pain Scale: Adult ld1 Procedures: 13:06 Nerve block: (digital) of palmar aspect of proximal phalanx of left index finger kb Medication: Lidocaine 1% without epinephrine Marcaine 0.5%, Amount: 5 mls were injected, Effect: the patient has resolution of the pain, Set up for procedure. Performed by Chloe REAGAN Patient tolerated well. MDM: 11:08 Patient medically screened. kb 13:55 Data reviewed: vital signs, nurses notes. kb 12/06 11:21 Order name: Hand Left 3 View XRAY; Complete Time: 12:18 kb 12/06 13:54 Order name: Wound Care; Complete Time: 14:11 kb 12/06 13:54 Order name: Wound dressing; Complete Time: 14:11 kb Administered Medications: 11:40 Drug: Boostrix Tdap IM 0.5 ml Route: IM; Site: right deltoid; cm9 13:15 Drug: Lidocaine Infiltration (1 %) 1 vials Volume: 5 ml; Route: Infiltration; mb9 13:15 Drug: Bupivacaine Infiltration (0.5 %) 1 vials Volume: 10 ml; Route: Infiltration; mb9 Disposition: 13:29 Co-signature as Attending Physician, Sumanth ULRICH was immediately available on-site ms3 in the Emergency Department for consultation in the care of the patient. Disposition Summary: 12/06/22 13:56 Discharge Ordered Location: Home kb Condition: Stable kb Diagnosis - Avulsion of nail - second digit, left hand kb Followup: kb - With: Emergency Department - When: As needed - Reason: Worsening of condition Followup: kb - With: Private Physician - When: 2 - 3 days - Reason: Recheck today's complaints, Continuance of care, Re-evaluation by your physician Discharge Instructions: - Discharge Summary Sheet kb - Nail Avulsion kb Forms: - Work release form kb - Medication Reconciliation Form kb - Thank You Letter kb - Antibiotic Education kb - Prescription Opioid Use kb Prescriptions: - Cephalexin 500 mg Oral Capsule - take 1 capsule by ORAL route every 8 hours for 10 days; 30 capsule; Refills: 0, kb Product Selection Permitted Signatures: Dispatcher [employer] EDMS Chloe Jeronimo, DAIJA-C CARE ANALYST-Sumanth Montoya, DO ms3 Nisa Crain, RN RN ld1 Juany Lo RN RN mb9 Kimberly Hall RN RN cm9 Corrections: (The following items were deleted from the chart) 15:20 15:19 Skin: injury, avulsion(s), of the dorsal aspect of distal phalanx of left index kb finger, kb
--- NOTE | 2022-12-06 13:56 | ER ---
Nurse's Notes [facility] [place] [place] Name: Scout Monteiro II Age: 27 yrs Sex: Male : 1995 Arrival Date: 12/06/2022 Time: 11:03 Bed 11 Private MD: Diagnosis: Avulsion of nail - second digit, left hand Presentation: 12/06 11:19 Chief complaint: Patient states: Left pointer finger laceration today at work - reports ld1 nail coming off. Coronavirus screen: At this time, the client does not indicate any symptoms associated with coronavirus-19. Ebola Screen: No symptoms or risks identified at this time. Initial Sepsis Screen: Does the patient meet any 2 criteria? No. Patient's initial sepsis screen is negative. Does the patient have a suspected source of infection? No. Patient's initial sepsis screen is negative. Risk Assessment: Do you want to hurt yourself or someone else? Patient reports no desire to harm self or others. Onset of symptoms was December 06, 2022. 11:19 Method Of Arrival: Ambulatory ld1 11:19 Acuity: LAVELL 4 ld1 Triage Assessment: 11:20 General: Appears in no apparent distress. comfortable, Behavior is calm, cooperative, ld1 appropriate for age. Pain: Denies pain. Pain: Complains of pain in dorsal aspect of distal phalanx of left index finger, dorsal aspect of middle phalanx of left index finger and left index fingernail Pain does not radiate. Pain currently is 10 out of 10 on a pain scale. EENT: No signs and/or symptoms were reported regarding the EENT system. Neuro: Level of Consciousness is awake, alert, obeys commands, Oriented to person, place, time, situation. Cardiovascular: Capillary refill < 3 seconds Patient's skin is warm and dry. Respiratory: Airway is patent Respiratory effort is even, unlabored. Musculoskeletal: No signs and/or symptoms reported regarding the musculoskeletal system. Injury Description: Laceration sustained to left index fingernail. Historical: - Home Meds: 11:20 Seroquel 25 mg Oral tablet daily [Active]; ld1 - PMHx: 11:20 Bipolar disorder; Schizophrenia; ld1 - PSHx: 11:20 None; ld1 - Immunization history:: Adult Immunizations up to date, Client reports receiving the 2nd dose of the Covid vaccine. - Social history:: Smoking status: Patient denies any tobacco usage or history of. Patient/guardian denies using alcohol. Screenin:22 [facility] ED Fall Risk Assessment (Adult) History of falling in the last 3 months, ld1 including since admission No falls in past 3 months (0 pts). Abuse screen: Denies threats or abuse. Denies injuries from another. Nutritional screening: No deficits noted. Tuberculosis screening: No symptoms or risk factors identified. Assessment: 11:22 Reassessment: See triage assessment. ld1 14:15 Reassessment: No changes from previously documented assessment. Patient and/or family mb9 updated on plan of care and expected duration. Pain level reassessed. Patient is alert, oriented x 3, equal unlabored respirations, skin warm/dry/pink. Vital Signs: 11:19 Resp 18; Pulse Ox 100% ; Weight 90.72 kg; Height 5 ft. 11 in. ; Pain 10/10; ld1 11:22 BP 130 / 97; Pulse 81; Temp 98.3(O); ld1 14:15 BP 128 / 89; Pulse 88; Resp 18; Pulse Ox 100% ; mb9 11:19 Body Mass Index 27.89 (90.72 kg, 180.34 cm) ld1 11:19 Pain Scale: Adult ld1 ED Course: 11:04 Patient arrived in ED. ts1 11:08 Chloe Jeronimo FNP-C [facility] kb 11:08 Sumanth Crain DO is Attending Physician. kb 11:20 Triage completed. ld1 11:20 Arm band placed on right wrist. ld1 11:22 Patient has correct armband on for positive identification. Placed in gown. Bed in low ld1 position. Call light in reach. Side rails up X2. Pulse ox on. NIBP on. Door closed. Noise minimized. Warm blanket given. 11:45 Hand Left 3 View XRAY In Process Unspecified. EDMS 14:15 No provider procedures requiring assistance completed. Patient did not have IV access mb9 during this emergency room visit. Administered Medications: 11:40 Drug: Boostrix Tdap IM 0.5 ml Route: IM; Site: right deltoid; cm9 13:15 Drug: Lidocaine Infiltration (1 %) 1 vials Volume: 5 ml; Route: Infiltration; mb9 13:15 Drug: Bupivacaine Infiltration (0.5 %) 1 vials Volume: 10 ml; Route: Infiltration; mb9 Medication: 14:15 VIS not applicable for this client. mb9 Outcome: 13:56 Discharge ordered by . bibi 14:15 Discharged to home ambulatory. mb9 14:15 Condition: stable 14:15 Discharge instructions given to patient, Instructed on discharge instructions, follow up and referral plans. Demonstrated understanding of instructions, follow-up care, medications, Prescriptions given X 1. 14:16 Patient left the ED. mb9 Signatures: Dispatcher [employer] EDMS Chloe Jeronimo, PARAPROFESSIONAL AIDE-C PARAPROFESSIONAL AIDE-Ckb Nisa Crain RN RN ld1 Juany Lo RN RN mb9 Kimberly Hall RN RN cm9 Yolanda Garcias, PAS PAS ts1
[2022-12-06 14:21] VITALS: O2SAT 100
[2022-12-06 14:22] VITALS: TEMP 98.3
[2022-12-06 14:23] VITALS: BP 128/89
== END 2022-12-06 14:16 | disposition home or self-care (01) ==
LOC: ER 11:03
DX: S61.301A Unspecified open wound of left index finger with damage to nail, initial encounter (principal)
CPT/HCPCS: J2001